=== PATIENT | male | born 1995 | race Caucasian/White ===

== ENCOUNTER → 2022-05-12 | Outpatient (REF) | LOC: M PLAIMG 15:08 | PROVIDERS: ATTEND Internal Medicine | DX: R52 Pain, unspecified (principal) ==

== ENCOUNTER → 2022-09-20 | Outpatient (CLI) | payer OTHER ==
[~2022-09-20] MED LIST: PROHANCE 279.3MG/ML 15ML VIAL ONE; PROHANCE 279.3MG/ML 5ML VIAL ONE
== END ==
LOC: M PLAIMG 10:10
PROVIDERS: ATTEND Physician Assistant
DX: M25.561 Pain in right knee (principal)
CPT/HCPCS: 73723; A9576

== ENCOUNTER → 2023-04-05 | Outpatient (REF) ==
[~2023-04-05] MED LIST changes: -PROHANCE 279.3MG/ML 15ML VIAL ONE; -PROHANCE 279.3MG/ML 5ML VIAL ONE; +VITA100093 PO; +[UNRECOGNIZED DRUG - OTHER] PO
== END ==
LOC: M PLAIMG 12:56
PROVIDERS: ATTEND Internal Medicine
DX: R52 Pain, unspecified (principal)

== ENCOUNTER 2023-04-12 10:56 | Day surgery (SDC) | payer OTHER ==
[~2023-04-12] VITALS: Ht 175.3 cm; Wt 85.7 kg
[2023-04-12] MEDS ORDERED: LR 1,000 ML IV SCH ×2 (11:15→14:20)
[2023-04-12] MEDS ORDERED: ONDANSETRON 4MG 2ML VIAL As Ordered ONE (11:49)
[2023-04-12] MEDS ORDERED: ROCURONIUM BROMIDE 50MG/5ML VIAL As Ordered ONE (11:49)
[2023-04-12] MEDS ORDERED: LIDOCAINE 2% 100MG/5ML SDV (FOR ANES.) As Ordered ONE (11:49)
[2023-04-12] MEDS ORDERED: SUGAMMADEX SODIUM 500 MG/5 ML VIAL (BRIDION) As Ordered ONE (11:49)
[2023-04-12] MEDS ORDERED: propofoL 200 MG/20 ML VIAL As Ordered ONE (11:49)
[2023-04-12] MEDS ORDERED: MIDAZOLAM INJ 2MG/2ML VIAL As Ordered ONE (11:53)
[2023-04-12] MEDS ORDERED: fentaNYL 100 MCG/2 ML INJECTION As Ordered ONE (11:53)
[2023-04-12] MEDS ORDERED: LIDOCAINE W/EPINEPHRINE 1% 20ML VIAL As Ordered ONE (12:22)
[2023-04-12] MEDS ORDERED: COCAINE 4% 4ML NASAL SOLUTION BTL As Ordered ONE (12:23)
[2023-04-12] MEDS ORDERED: OXYMETAZOLINE 0.05% NASAL SPRAY (AFRIN) As Ordered ONE ×2 (12:23→14:09)
[2023-04-12] MEDS ORDERED: GLYCOPYRROLATE INJ 0.2 MG/ML 2 ML VIAL As Ordered ONE (12:42)
[2023-04-12] MEDS ORDERED: ACETAMINOPHEN 1000MG 100ML IV BAG As Ordered ONE (13:00)
[2023-04-12] MEDS ORDERED: HYDROMORPHONE HCL 0.5 MG/ 0.5 ML SYRINGE IV PRN (14:20)
[2023-04-12] MEDS ORDERED: fentaNYL 100 MCG/2 ML INJECTION IV PRN (14:20)
[2023-04-12] MEDS ORDERED: oxyCODONE 5MG TAB PO PRN (14:20)
[2023-04-12] MEDS ORDERED: ONDANSETRON 4MG 2ML VIAL IV PRN (14:20)
[2023-04-12 16:20] VITALS: BP 135/88; TEMP 97.3; O2SAT 98
== END 2023-04-12 17:02 | disposition home or self-care (01) ==
LOC: M SDC 10:56
PROVIDERS: ATTEND Otolaryngology
DX: J32.8 Other chronic sinusitis (principal); J33.8 Other polyp of sinus; J34.2 Deviated nasal septum; J34.3 Hypertrophy of nasal turbinates
CPT/HCPCS: 30140; 30520; 31254; 31267; 61782; 88305; A6024; C9143; J0131; J1100; J2250; J2405; J3010

== ENCOUNTER → 2024-03-12 | Outpatient (REF) | payer OTHER ==
[2024-03-12 12:24] LABS: SEMEN APPEARANCE OPAQUE (OPAQUE)
[2024-03-12 12:25] LABS: SEMEN VISCOSITY LIQUID (LIQUID); SEMEN VOLUME 3.8 ml (2.0-5.0); SPERM CONCENTRATION 81.7 M/ml (>=15.0); WBC CONCENTRATION <=1 M/ml (<=1 M/ml)
== END ==
LOC: M LAB REF 12:01
PROVIDERS: ATTEND Obstetrics & Gynecology Reproductive Endocrinology
DX: Z31.41 Encounter for fertility testing (principal)